=== PATIENT | male | born 1995 | race Hispanic/Latino ===

== ENCOUNTER 2023-03-13 13:08 | Emergency (ER) | payer OTHER, SELFPAY ==
[2023-03-13 13:10] VITALS: BP 126/75; PULSE 63; RESP 18; TEMP 35.9; O2SAT 100; BMI 25.0
--- NOTE | 2023-03-13 13:26 | CT_ITS ---
STUDY: CT ABDOMEN AND PELVIS WITH CONTRAST REASON FOR EXAM: Male, 27 years old. LLQ Pain RADIATION DOSAGE (If Supplied By Facility): CTDIvol = ( 11.61 ) mGy, DLP = ( 742.97 ) mGycm TECHNIQUE: Transaxial images were obtained from the dome of the diaphragm to the symphysis pubis without oral contrast. IV 100mL Isovue-370 was administered. Sagittal and coronal images were reconstructed. Individualized dose optimization techniques were used for this CT. COMPARISON: None. FINDINGS: The visualized lung bases are unremarkable. The visualized portions of the heart are within normal limits. Normal liver. Normal gallbladder and extrahepatic biliary system. Normal spleen. Normal pancreas. Normal bilateral adrenal glands. Normal right kidney. Normal left kidney. Normal visualized stomach. Normal small intestine. Retained stool noted throughout the colon. The appendix is visualized and appears normal. Normal appendix seen on coronal recon images 46 through 49 Normal abdominal aorta. Normal inferior vena cava. Normal retroperitoneum. Normal urinary bladder. Normal abdominal wall. Normal osseous structures. CT/Abdomen/Pelvis W IV Cont ONLY IMPRESSION: No suspicious solid organ abnormality No CT evidence of an acute inflammatory process, normal appendix visualized Retained stool throughout the colon Electronically Signed: Kamar Greene MD at 14:46 EST ,
--- NOTE | 2023-03-13 13:28 | EDS_ITS ---
HPI History of Present Illness Chief Complaint: Abd Pain Informant: patient and other (Used online full time staff interpreter service.) Narrative Narrative: Patient presents with 3 days of lower abdominal pain. Its always been below the umbilicus. It is on the left lower quadrant. He states he feels like it is hard inside. He is still moving the bowels. He is still eating and drinking. He does work a very physical job with a lot of lifting. But he denies hurting himself or doing anything specific to cause this. He has never had abdominal surgery. No known history of diverticulitis. No medical problems medicines or allergies. Nothing specifically makes this better or worse. No urinary symptoms. [facility] Medical History (Updated 03/13/23 @ 15:[address] Saúl Johnson MD) Abdominal pain Home Medications NK 03/13/23 [History Last Taken Unknown] Allergy/AdvReac Type Severity Reaction Status Date / Time No Known Allergies Allergy Verified 03/13/23 13:10 Social History Smoking Status: Never smoker ROS ROS ED ROS Narrative A complete review of systems was performed and is negative except as documented in the history of present illness. Some specific details below. Constitutional: No recent fevers or chills. Days. EYE: No color change. ENT: No difficulty swallowing. No swelling. No pain. No history of GERD CV: No chest pain or palpitations. Respiratory: No dyspnea. No hemoptysis. No difficulty taking breaths. GI: Please see history of present illness. : No frequency dysuria or hematuria. No difficulty starting or stopping. Musculoskeletal: No recent trauma. No pains in the back or flank. Skin: No rash. Nondiaphoretic. Neuro: No weakness or numbness. Endocrine: No polyuria or polydipsia. EXAM Physical Exam Narrative Exam Narrative: CONSTITUTIONAL: Patient is nontoxic in appearance. The patient looks comfortable. HEENT: No notable trauma. Mucous membranes moist. EYES: No conjunctival injection or icterus. CARDIOVASCULAR: Regular rate. Regular rhythm. No notable murmur. No JVD. RESPIRATORY: No respiratory distress. Breathing is unlabored. No wheezes. No rhonchi. No rales. No pain with a deep breath. GASTROINTESTINAL: Not distended. Bowel sounds are normal. I do not feel a mass but he does have tenderness toward the left lower quadrant. No clear rebound or guarding. I feel no hernia. He has no right lower quadrant tenderness though. No rash that I note. GENITOURINARY: No tenderness over the bladder. No CVA tenderness. MUSCULOSKELETAL: Atraumatic. NEUROLOGICAL: Patient is alert and appropriate. No focal deficit noted. SKIN: No noted rashes. No diaphoresis. No pallor. PSYCHIATRIC: Patient is calm. Mood is appropriate. Const Vital Signs: 03/13/23 13:10 Temperature 96.7 F L Temperature Source Temporal Pulse Rate 63 Respiratory Rate 18 Blood Pressure 126/75 H Blood Pressure Mean 92 Pulse Ox 100 Oxygen Delivery Method Room Air MDM MDM MDM Narrative Medical decision making narrative: My independent interpretation of the patient's CT scan of the abdomen pelvis shows no sign of free air. No mass. No sign of diverticulitis. I do not see any sign of acute illness. Just mild increase of stool. But no sign of obstruction. Final reading is pending. CBC is normal. Patient's electrolytes are normal other than mild elevation of the creatinine at 1.32. He was given IV fluids. Glucose is minimally up at 107 this does not need acute treatment. Final reading of the patient's CT showed some mild constipation but no other acute process. I then again used interpretation services to give him all the results. We discussed [id number] stool softeners, increasing fluid intake. He had no further questions for me. We discussed returning if he has further pain, vomiting, fevers or other concerns Lab Data Attestation: I reviewed the patient's lab results. Labs: Laboratory Results - last 24 hr 03/13/23 13:45 WBC 6.4 RBC 5.09 Hgb 14.6 Hct 44.7 MCV 87.8 MCH 28.7 MCHC 32.7 RDW Std Deviation 38.3 RDW Coeff of Grazyna 12.0 Plt Count 200 MPV 10.6 Immature Gran % (Auto) 0.600 Neut % (Auto) 53.5 Lymph % (Auto) 34.5 Shackelford % (Auto) 7.1 Eos % (Auto) 3.5 Baso % (Auto) 0.8 Absolute Neuts (auto) 3.4 Absolute Lymphs (auto) 2.19 Nucleated RBC % 0 Sodium 139 Potassium 3.9 Chloride 107 Carbon Dioxide 29.0 Anion Gap 3 L BUN 22 H Creatinine 1.32 H Estim Creat Clear Calc 93.08 Est GFR (MDRD) Af Amer 84 Est GFR (MDRD) Non-Af 69 BUN/Creatinine Ratio 16.7 Glucose 107 H Calcium 9.0 Radiography Diagnostic Testing: Clinical Impression(s) from Imaging Studies Abdomen/Pelvis CT 03/13/23 13:26 IMPRESSION: No suspicious solid organ abnormality No CT evidence of an acute inflammatory process, normal appendix visualized Retained stool throughout the colon Electronically Signed: Kamar Greene MD at 14:46 EST Reading Location ID and State: [facility] / [place] , Service support , Discharge Plan Triage Chief Complaint: Abd Pain ED Provider: Saúl Johnson Dx/Rx/DC Orders Clinical Impression: Acute constipation, Abdominal pain Instructions: ED Constipation (Adult) Prescriptions: No Action NK Primary Care Provider: Care Physician,No Primary Referrals: Vidhi Alejandre DO [Med Staff - Active Staff] - 3-5 Days if not improving Care Physician,No Primary [Primary Care Provider] - Print Language: Pashto Disposition Disposition: Home, Self Care
[2023-03-13] MEDS: 0.9% Normal Saline (1000mL) 500 ML 1000 ML IV (13:39)
[2023-03-13 13:52] LABS: Absolute Lymphocyte Count 2.19 X10^3/uL (0.83-4.51); Absolute Neutrophil Count 3.4 X10^3/uL (2.0-7.7); Basophil# 0.05 X10^3/uL; Basophil% 0.8 % (0-1); Eosinophil# 0.22 X10^3/uL; Eosinophils% 3.5 % (0-5); Hematocrit 44.7 % (40-54); Hemoglobin 14.6 g/dL (13.0-16.5); Lymphocyte # 2.19 X10^3/ul (0.83-4.51); Lymphocyte % 34.5 % (19-41); Mean Corp Hgb Conc 32.7 g/dL (32-36); Mean Corpuscular Hgb 28.7 pg (27.0-32.0); Mean Corpuscular Volume 87.8 fL (80-94); Mean Platelet Vol. 10.6 fl (6.2-12.0); Monocyte# 0.45 X10^3/uL; Monocyte% 7.1 % (0-10); NRBC Flagged by Analyzer 0 % (0-5); Neutrophil % 53.5 % (47-70); Platelet Count 200 K/mm3 (150-450); RBC Distribution Width SD 38.3 fl (35.1-43.9); Red Blood Count 5.09 M/mm3 (4.6-6.2); White Blood Count 6.4 K/mm3 (4.4-11.0)
[2023-03-13 14:05] LABS: Anion Gap 3 (5-15); BUN 22 mg/dL (7-18); BUN/Creat Ratio 16.7 RATIO (10-20); Chloride 107 mmol/L (98-107); Creatinine, Serum 1.32 mg/dL (0.70-1.30); EST Glomerular Filtration Rate 69 mL/min (>60); Est Glom Filt Rate - Afr Amer 84 mL/min (>60); Estimated Creatinine Clearance 93.08 ml/min; Glucose 107 mg/dL (74-106); Potassium 3.9 mmol/L (3.5-5.1); Sodium Level 139 mmol/L (136-145)
== END 2023-03-13 15:35 | disposition home or self-care (01) ==
PROVIDERS: Emergency Provider Emergency Medicine; Visit Provider Emergency Medicine
DX: K59.00 Constipation, unspecified (principal); R10.32 Left lower quadrant pain
CPT/HCPCS: 74177; 80048; 85025; 96360; 99283; J7040; Q9967